=== PATIENT | male | born 1990 | race Two or more races ===

== ENCOUNTER 2017-01-12 22:49 | Emergency (ER) | payer OTHER ==
[2017-01-12 23:04] VITALS: BP 140/72; PULSE 72; RESP 18; TEMP 97.3
--- NOTE | 2017-01-12 23:36 | ED ---
General Adult HPI - General Chief complaint: Wound/Laceration Stated complaint: thumb lac Time Seen by Provider: 01/12/17 23:18 Source: patient, family, RN notes reviewed Mode of arrival: ambulatory Limitations: no limitations - History of Present Illness Initial comments: playing and history of present illness; this is a 26-year-old male who accidentally cut his left nondominant thumb documented. Full range of motion neurovascular status intact. Tetanus shots up-to-date. - Related Data Home Medications Medication Instructions Recorded Confirmed No Known Home Medications [No 01/12/17 01/12/17 Known Home Medications] Allergies Allergy/AdvReac Type Severity Reaction Status Date / Time No Known Allergies Allergy Verified 01/12/17 23:28 Review of Systems ROS Statement: Those systems with pertinent positive or pertinent negative responses have been documented in the HPI. review of systems no other complaints or problems other than accidentally cutting his nondominant left thumb with the yamileth. Immunizations including tetanus shots are up-to-date per patient and his mother. Patient is right-hand dominant. No known ALLERGIES. No significant past medical problems . ROS Other: All systems not noted in ROS Statement are negative. Past Medical History Past Medical History: No Reported History History of Any Multi-Drug Resistant Organisms: None Reported Past Surgical History: No Surgical Hx Reported Past Psychological History: No Psychological Hx Reported Smoking Status: Never smoker Past Alcohol Use History: None Reported Past Drug Use History: None Reported General Exam - General Exam Comments Initial Comments: General: The patient is awake and alert, she has pain because of accidental laceration with a pack jackknifed to his nondominant left thumb. Vital signs are stable. Musculoskeletal: has a 2 cm laceration to the left thumb tip just lateral to the nail on the ulnar aspect. This was cleaned and closed with 4 sutures. Neurological: neurological intact to the tip. Limitations: no limitations Course Vital Signs 01/12/17 23:01 Temperature 97.3 F L Pulse Rate 72 Respiratory 18 Rate Blood Pressure 140/72 O2 Sat by Pulse 98 Oximetry Procedures - Procedures Initial comment: her seizure; using sterile technique the thumb was cleaned with Betadine normal saline solution and then anesthetized 1% Xylocaine. The wound edges are approximated with 4-0 nylon 4 sutures were placed. Hemostasis obtained. The patient will return in 8 days have the sutures removed and released to be signs of infection. Dr. Thompson Disposition Clinical Impression: Laceration of left thumb Disposition: HOME SELF-CARE Condition: Good Instructions: Care For Your Stitches (ED), Laceration (ED) Additional Instructions: fOr signs of infection return to the emergency room or your family doctor. Return in 8 days for sutures to be removed Referrals: None,Stated [Primary Care Provider] - 1-2 days Time of Disposition: 23:36
== END 2017-01-12 23:50 | disposition home or self-care (01) ==
LOC: EC 22:49
DX: S61.012A Laceration without foreign body of left thumb without damage to nail, initial encounter (principal); W26.0XXA Contact with knife, initial encounter
CPT/HCPCS: 12001; 99282

== ENCOUNTER 2019-02-25 12:40 | Emergency (ER) | payer OTHER, BC ==
[2019-02-25 12:48] VITALS: BP 118/70; PULSE 97; RESP 18; TEMP 97.6
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
== END 2019-02-25 13:20 | disposition home or self-care (01) ==
LOC: EC 12:40
DX: H20.9 Unspecified iridocyclitis (principal); V48.5XXA Car driver injured in noncollision transport accident in traffic accident, initial encounter; Y92.410 Unspecified street and highway as the place of occurrence of the external cause
CPT/HCPCS: 99283